=== PATIENT | female | born 2000 | race Caucasian/White ===

== ENCOUNTER 2024-12-12 18:10 | Emergency (ER) | payer OTHER, SELFPAY ==
[2024-12-12 18:12] VITALS: BP 137/97; PULSE 92; RESP 20; TEMP 36.8; O2SAT 100; BMI 48.6
--- NOTE | 2024-12-12 18:17 | CRLHL7_ITS ---
For Patients: As a result of the Century Cures Act, medical imaging exams and procedure reports are released immediately into your electronic medical record. You may view this report before your referring provider. If you have questions, please contact your health care provider. INDICATION: Left foot pain. TECHNIQUE: Left foot 3 view. COMPARISON: None. FINDINGS: Bones: No acute fracture or suspicious bone lesion. Alignment is normal. Joint spaces: Unremarkable. Soft tissues: Unremarkable. IMPRESSION: No acute findings. Dictated by Nisreen Tijerina MD @ 12/12/2024 7:40:32 PM (Electronically Signed)
--- NOTE | 2024-12-12 20:26 | ED_ITS ---
HPI - General Adult General Date Seen: 12/12/24 Chief complaint: Extremity Pain/Injury, Lower Stated complaint: left foot pain Time Seen by Provider: 12/12/24 20:24 History of Present Illness HPI narrative: 24-year-old female presenting to the ER today for pain in her left foot. She has had pain for about 3 weeks and has been getting worse over time. No known recent injury. She does recall that she sprained her left foot twice when she was a kid, once at age 9 once age 13. She also recalls that she had a loose squeaky step a few weeks ago but does not recall he trip or fall or twisting injury. She has been having pain in the dorsum and sole of her midfoot roughly in the area where her 2nd and 3rd toes are a and in the midfoot area. It has been there for about 3 weeks. It has actually been getting worse for the past couple of days. She was trying to just rested in lead ago way on its own but since it is now getting worse and it has been there for 3 weeks she had to come to the ER today to get checked out. He has not been bruised. No discoloration. No redness. No fever. No numbness. Normal toe wiggling. No pain radiating back to her heel or forward into her toes. No ankle or lower leg pain. Related Data Previous Rx's ?Medication ?Instructions ?Recorded venlafaxine 150 mg 150 mg PO DAILY #90 caps capsule,extended release 24 hr Allergies Allergy/AdvReac Type Severity Reaction Status Date / Time Sulfa (Sulfonamide Allergy Verified 05/02/24 08:34 Antibiotics) [facility] Medical History (Updated 12/12/24 @ 20:46 by Jacques Jimenez MD) History of MRSA infection ?Z86.14 - Personal history of Methicillin resistant Staphylococcus aureus infection (ICD-10) History of scoliosis ?Z87.39 - Personal history of other diseases of the musculoskeletal system and connective tissue (ICD-10) History of iron deficiency anemia ?Z86.2 - Personal history of diseases of the blood and blood-forming organs and certain disorders involving the immune mechanism (ICD-10) History of allergic rhinitis ?Z87.09 - Personal history of other diseases of the respiratory system (ICD- 10) Surgical History History of operative procedure on hip ?Z98.890 - Other specified postprocedural states (ICD-10) History of knee surgery ?Z98.890 - Other specified postprocedural states (ICD-10) Family History (Updated 08/20/22 @ 11:05 by Gisela Delaney ~ PSR) Mother Seizure disorder Pulmonary embolism Other Mental disorder Social History Smoking Status: Never smoker Second hand tobacco smoke exposure: No How often do you have a drink containing alcohol: never AUDIT-C Alcohol total score: 0 Non-prescribed substance use: denies use Exam Narrative: Exam Narrative: Constitutional: Appears well-developed and well-nourished. Active. Non-toxic appearing. HENT: Head: Atraumatic. No signs of injury. Nose: No nasal discharge. Mouth/Throat: Mucous membranes are moist. Pharynx is normal. Tonsils symmetric. Uvula midline. Airway patent. Eyes: Conjunctivae normal and EOM are normal. Pupils are equal, round, and reactive to light. Right eye exhibits no discharge. Left eye exhibits no discharge. No icterus. Neck: Normal range of motion. Neck supple. No adenopathy. No stridor. Cardiovascular: Normal rate and regular rhythm. No murmur heard. No murmurs, rubs, or gallops. Brisk capillary refill Pulmonary/Chest: Effort normal. No stridor. No respiratory distress. Musculoskeletal: Normal except for her left foot- Normal range of motion. No edema. No tenderness. No deformity. He left lower extremity: Normal inspection of the foot. Mild tenderness of the dorsal and plantar midfoot over the medial and lateral cuneiform bones without any obvious bruising, swelling, redness. No crepitus. No tenderness over the forefoot. No tenderness over the hindfoot. Mild tenderness over the medial side on the arch. No tenderness over the lateral foot or 5th metatarsal. Ankle is nontender. Normal plantar and dorsiflexion at the ankle. Strong DP and PT pulses. Normal distal cap refill. Intact distal sensory function in the sole of foot, medial and lateral foot, dorsal 1st webspace. She does note that her midfoot pain gets worse we she plantar flexes her foot and toes downward. She has full plantar flexion and dorsiflexion of the foot and ankle. Neurological: Alert. Normal strength. No cranial nerve deficit or sensory deficit. Coordination normal. GCS eye subscore is 4. GCS verbal subscore is 5. GCS motor subscore is 6. Skin: Skin is warm. No rash noted. Const: Vital Signs, click to edit/add: Vital Signs - 24 hr 12/12/24 18:12 12/12/24 20:59 12/12/24 21:01 Temperature 98.2 F 98.2 F 98.2 F Pulse Rate [Pulse Oximeter] 92 85 85 Respiratory Rate 20 20 20 Blood Pressure [Ri t Upper Arm] 137/97 H 125/85 125/85 Pulse Oximetry 100 100 Oxygen Delivery Me thod Room Air Room Air Course Vital Signs Vital signs: Initial Vital Signs Temperature 98.2 F 12/12/24 18:12 Temperature Source Temporal Artery Scan 12/12/24 18:12 Pulse Rate 92 12/12/24 18:12 Pulse Rhythm Regular 12/12/24 18:12 Respiratory Rate 20 12/12/24 18:12 Blood Pressure 137/97 H 12/12/24 18:12 Blood Pressure Mean 110 H 12/12/24 18:12 Blood Pressure Position Sitting 12/12/24 18:12 Pulse Oximetry 100 12/12/24 18:12 Oxygen Delivery Method Room Air 12/12/24 18:12 Vital Signs Temperature 98.2 F 12/12/24 18:12 Pulse Rate 92 12/12/24 18:12 Respiratory Rate 20 12/12/24 18:12 Blood Pressure 137/97 H 12/12/24 18:12 Pulse Oximetry 100 12/12/24 18:12 Oxygen Delivery Method Room Air 12/12/24 18:12 Temperature 98.2 F 12/12/24 21:01 Pulse Rate 85 12/12/24 21:01 Respiratory Rate 20 12/12/24 21:01 Blood Pressure 125/85 12/12/24 21:01 Pulse Oximetry 100 12/12/24 20:59 Oxygen Delivery Method Room Air 12/12/24 20:59 Medical Decision Making MDM Narrative Medical decision making narrative: Very pleasant 24-year-old female presenting to the ER today with a 3 week history of atraumatic left midfoot pain. X-rays of the foot were obtained and are fortunately negative for any signs of fracture, dislocation, Lisfranc joint injury, foreign body, or other abnormality. Exam of the foot shows normal skin. No signs of bruising. No abrasion. No cut or puncture wound. There is no redness or warmth to suggest infection. She has strong pulses and normal cap refill. No signs of ischemia. She is not having any radicular leg pain or low back pain. At this point we suspect this may be a tendinitis or a ligamentous injury in \he the midfoot. I think she is safe for outpatient management. Will place her into an ortho shoe. Recommended rest and elevation as possible. Ibuprofen 600 mg t.i.d. for anti-inflammatory effect and pain control. Follow- up with the [facility] within 3-5 days if not improving. Return to the ER if worse. Questions answered and patient is agreeable to the plan of care. Imaging Data XR L foot: Attestation: I have reviewed the pertinent imaging results. Radiologist's impression: IMPRESSION: No acute findings. Discharge Plan Discharge Clinical Impression: Acute pain of left foot Patient Disposition: Home, Self-Care Condition: Stable Instructions: Foot Sprain (ED) Additional Instructions: As we discussed, please come back to the ER right away if you have worsening pain, redness of your foot, fever, or any other problems Please try to wear the ortho shoe for the next couple of days to protect your foot. Resting keep her foot elevated when possible. Avoid activities that require a lot of walking, prolonged standing, or jumping from her left foot. Use ibuprofen 600 mg 3 times daily to help treat pain and reduce inflammation for the next 2-3 days. If you are not improving within 3-5 days, please follow-up with your regular doctor or with the [facility]. To schedule an ER follow-up visit with the orthopedic clinic you can call [phone]. Prescriptions: No Action venlafaxine 150 mg capsule,extended release 24hr 150 mg PO DAILY Qty: 90 3RF Follow Up/Referrals: Mariluz Hanley APRN, [employer] [Primary Care Provider, Family Practice] Stand Alone Forms: [employer] Info Instructions
[2024-12-12 20:59] VITALS: BP 125/85; PULSE 85; RESP 20; TEMP 36.8; O2SAT 100
[2024-12-12 21:01] VITALS: BP 125/85; PULSE 85; RESP 20; TEMP 36.8
== END 2024-12-12 21:03 | disposition home or self-care (01) ==
LOC: ED 20:55
PROVIDERS: Emergency Provider Emergency Medicine; PCP Nurse Practitioner Family
DX: M79.672 Pain in left foot (principal)
CPT/HCPCS: 73630; 99282; 99283; 99284